=== PATIENT | female | born 1990 | race Caucasian/White ===

== ENCOUNTER 2016-09-09 12:11 | Emergency (ER) | payer MEDICAID ==
--- NOTE | ~2016-09-09 | ER ---
PATIENT'S NAME: [facility] AGE: 25 Y [address] ROOM: [place] [address] LOCATION: [facility] ADMIT DATE: 09/09/2016 ER/Outpatient Report DISCHARGE DATE: 09/09/2016 FAMILY PHYSICIAN: Tiago Pride MD ATTENDING PHYSICIAN: Roni Muñiz Admission date and time documented in the medical record. I saw the patient at 1240 hours. CHIEF COMPLAINT: Sore throat. HISTORY OF PRESENT ILLNESS: This patient is a 25-year-old female who has had a sore throat for 3 days. Difficulty swallowing. No fever. No earache. No chest pain, shortness of breath, or cough. No abdominal pain, nausea, vomiting, or diarrhea. HOME MEDICATIONS: vitamins. ALLERGIES: NONE. SOCIAL HISTORY: The patient smokes 1 cigarette a month. Nondrinker. SIGNIFICANT PAST MEDICAL HISTORY: Tobacco use, otherwise negative. OPERATIONS: Cholecystectomy. REVIEW OF SYSTEMS: All systems reviewed by me are negative with the exception of those discussed in the history of present illness. PHYSICAL EXAMINATION: VITAL SIGNS: Temperature 98.6 tympanic, pulse 82, respirations 16, blood pressure 132/84, and O2 saturation on room air is 97%. HEENT: Head: Normocephalic. Eyes, clear. Ears, clear TMs bilaterally. Nose: Clear. Throat: Clear. No exudate, no redness, no swelling. NECK: No nuchal rigidity. No thyromegaly or cervical adenopathy. No tenderness. SPINE: Negative. LUNGS: Clear. No rales, rhonchi, or wheezes. PATIENT'S NAME: [facility] AGE: 25 Y [address] ROOM: [place], [place] [address] LOCATION: ED ADMIT DATE: 09/09/2016 ER/Outpatient Report DISCHARGE DATE: 09/09/2016 FAMILY PHYSICIAN: Tiago Pride MD ATTENDING PHYSICIAN: Roni Muñiz HEART: Regular. Pulses are palpable. No chest wall or ribcage pain to palpation. ABDOMEN: Soft. Active bowel tones. EXTREMITIES: Intact. NEUROVASCULAR: Intact. SKIN: Clear. DIAGNOSTIC DATA: Rapid strep screen was negative. Monospot was negative. White count was 05581, 67 segs, 25 lymphs, 6 monos, 2 eos, 1 baso. Hemoglobin is 12.3, hematocrit 37.0, and platelet count is 334,000. IMPRESSION: Sore throat, etiology uncertain, may be a mild viral infection. No evidence of bacterial infection. PLAN: The patient dismissed home. Observation. Activity as tolerated. Good fluid intake. Warm salt water gargles. Tylenol 2 every 4 hours as needed for pain. Follow up with personal physician as needed. Discussion ensued with the patient concerning my findings and recommendations, she understands. MD COLLINS HILL/modl /[id number] d: 09/09/161957 t: 09/10/161836, OUTPATIENT REPORT
[2016-09-09 13:05] LABS: BASOPHIL # 0.1 K/uL (0.0-0.2); BASOPHIL % 0.6 %; EOSINOPHIL # 0.2 K/uL (0.0-0.5); EOSINOPHIL % 1.8 %; HEMOGLOBIN 12.3 g/dL (11.0-15.0); IMMATURE GRANULOCYTE % 0.2 %; LYMPHOCYTE # 2.5 K/uL (0.8-4.0); LYMPHOCYTE % 24.5 %; MCH 29.5 pg (27.0-34.0); MCHC 33.2 gm/dL (32.0-36.5); MCV 88.7 fl (83.0-98.0); MONOCYTE # 0.6 K/uL (0.0-1.0); MONOCYTE % 6.1 %; MPV 10.5 fl (9.4-12.4); NEUTROPHIL # (ANC) 6.8 K/uL (1.8-7.8); NEUTROPHIL % 66.8 %; NRBC % 0 /100WBC (0-0.00); PLATELET COUNT 334 K/uL (150-450); RBC 4.17 M/uL (3.50-5.00); RDW-CV 12.9 % (11.9-14.6); WBC 10.1 K/uL (4.0-11.0)
== END 2016-09-09 15:02 | disposition disaster alternative care site (69) ==
LOC: GMED 12:11
PROVIDERS: Emergency Medicine
DX: J02.9 Acute pharyngitis, unspecified (principal); F17.210 Nicotine dependence, cigarettes, uncomplicated; Z90.49 Acquired absence of other specified parts of digestive tract; Z79.82 Long term (current) use of aspirin; Z79.899 Other long term (current) drug therapy

== ENCOUNTER 2016-12-04 01:10 | Emergency (ER) | payer MEDICAID ==
--- NOTE | ~2016-12-04 | ER ---
[facility] 26 [facility] [address] ROOM: [place] [address] LOCATION: [facility] ADMIT DATE: 12/04/2016 ER/Outpatient Report DISCHARGE DATE: 12/04/2016 FAMILY PHYSICIAN: Tiago Pride MD ATTENDING PHYSICIAN: Roni Muñiz Admission date and time documented on the medical record. I saw the patient at 0125 hours. CHIEF COMPLAINT: Right upper quadrant abdominal pain and leg cramping. HISTORY OF PRESENT ILLNESS: This patient is a 26-year-old female who around 1800 hours developed some intermittent right upper quadrant pain. She has had leg cramping off and on since early this morning. Light, sharp, stabbing in nature at times. No nausea, vomiting or diarrhea. No urinary frequency, urgency, or dysuria. No fever, chills, sweats. No chest pain or shortness of breath. No suprapubic low-back pain. The patient is 23 weeks gestation with her first . She has a due date in 04/02/2017. The patient has had a cholecystectomy and tonsillectomy. She does smoke about a quarter of pack of cigarettes a day. No alcohol use. No fall or trauma. No lightheadedness, dizziness, syncope or near syncope. No headache, eyes, ears, nose, throat, neck, or spine pain. No joint or muscle swelling, redness, or pain. No skin eruptions or rash. No neuro changes, psych issues, endocrine problems. HOME MEDICATIONS: 1. Stool softeners. 2. vitamins. ALLERGIES: NONE. SOCIAL HISTORY: The patient smokes a quarter of pack of cigarettes per day and nondrinker. SIGNIFICANT PAST MEDICAL HISTORY: Negative except for tobacco abuse. OPERATIONS: Tonsillectomy, cholecystectomy. REVIEW OF SYSTEMS: All systems reviewed by me are negative with exception of those discussed in the history of present illness. PATIENT'S NAME: [facility] AGE: 26 Y [address] ROOM: [place] [address] LOCATION: [facility] ADMIT DATE: 12/04/2016 ER/Outpatient Report DISCHARGE DATE: 12/04/2016 FAMILY PHYSICIAN: Tiago Pride MD ATTENDING PHYSICIAN: Roni Muñiz PHYSICAL EXAMINATION: VITAL SIGNS: Temperature 97.3 tympanic, pulse 87, respirations 18, blood pressure 143/82, O2 saturation on room air is 96%. heart tones were 153. HEAD: Normocephalic. EYES, EARS, NOSE, AND THROAT: Clear. Mucous membranes moist. NECK: Negative. SPINE: Negative. LUNGS: Clear. HEART: Regular. ABDOMEN: Soft. No true guarding or rigidity. No rebound tenderness. No CVA tenderness. EXTREMITIES: Intact. No swelling, redness or pain to palpation of lower extremities or upper extremities. Neurovascularly intact. SKIN: Clear. LABORATORY DATA: CMS was normal. Amylase and lipase were normal. CRP was 0.6, white count 80670, 71 segs, 22 lymphs, 5 monos, 2 eos, 1 baso. Hemoglobin is 10.1 with hematocrit 29.6, and platelet count 292,000. IMPRESSION: 1. Right upper quadrant abdominal pain, etiology uncertain. 2. Intrauterine 23 weeks gestation. PLAN: The patient dismissed home. Observation. Activity as tolerated. Fluids and diet as tolerated. Continue present home medications and care. Tylenol No. 3 two orally every 4 to 6 hours needed for pain, #10. Follow up with personal physician as scheduled later this afternoon. RONI MUÑIZ MD SDS/modl /[id number] d: 12/04/16250 t: 12/04/16 0430, OUTPATIENT REPORT
[2016-12-04 01:49] LABS: BILIRUBIN URINE NEGATIVE (NEGATIVE); BLOOD URINE NEGATIVE /UL (NEGATIVE); COLOR URINE YELLOW (YELLOW); GLUCOSE URINE NEGATIVE (NEGATIVE); KETONE URINE NEGATIVE (NEGATIVE); LEUKOCYTES URINE 500 /UL (NEGATIVE); NITRITE URINE NEGATIVE (NEGATIVE); PROTEIN URINE NEGATIVE (NEGATIVE); SPEC GRAVITY URINE 1.025 (1.003-1.035); TURBIDITY URINE 3+ (CLEAR); UROBILINOGEN URINE NORMAL (NORMAL)
[2016-12-04 01:51] LABS: BASOPHIL # 0.1 K/uL (0.0-0.2); BASOPHIL % 0.5 %; EOSINOPHIL # 0.2 K/uL (0.0-0.5); EOSINOPHIL % 1.6 %; HEMATOCRIT 29.6 % (33.0-46.0); HEMOGLOBIN 10.1 g/dL (11.0-15.0); IMMATURE GRANULOCYTE % 0.3 %; LYMPHOCYTE # 2.7 K/uL (0.8-4.0); LYMPHOCYTE % 21.7 %; MCH 30.4 pg (27.0-34.0); MCHC 34.1 gm/dL (32.0-36.5); MCV 89.2 fl (83.0-98.0); MONOCYTE # 0.7 K/uL (0.0-1.0); MONOCYTE % 5.3 %; MPV 10.5 fl (9.4-12.4); NEUTROPHIL # (ANC) 8.7 K/uL (1.8-7.8); NEUTROPHIL % 70.6 %; NRBC % 0 /100WBC (0-0.00); PLATELET COUNT 292 K/uL (150-450); RBC 3.32 M/uL (3.50-5.00); RDW-CV 13.6 % (11.9-14.6); WBC 12.3 K/uL (4.0-11.0)
[2016-12-04 01:55] LABS: BACTERIA URINE MODERATE (NEGATIVE); RBC URINE NEGATIVE #/HPF (NEGATIVE)
[2016-12-04 01:56] LABS: AMORPHOUS URINE 1+ (NEGATIVE)
[2016-12-04 02:07] LABS: ALBUMIN 2.7 gm/dL (3.5-5.0); ALK PHOS 86 IU/L (33-138); ALT 33 IU/L (12-78); ANION GAP 10.7 (10.0-19.0); AST 31 IU/L (10-40); BLOOD UREA NITROGEN 6 mg/dL (6-24); CALCIUM 8.3 mg/dL (8.5-10.5); CHLORIDE 109 mMol/L (96-110); CO2 23 mMol/L (22-32); CREATININE 0.4 mg/dL (0.5-1.1); ESTIMATED GFR (MDRD EQUATION) > 60; POTASSIUM 3.7 mMol/L (3.7-5.1); SODIUM 139 mMol/L (135-145); TOTAL BILIRUBIN 0.3 mg/dL (0.0-1.5); TOTAL PROTEIN 6.5 g/dL (6.0-8.4)
== END 2016-12-04 02:35 | disposition disaster alternative care site (69) ==
LOC: GMED 01:10
PROVIDERS: Emergency Medicine
DX: O99.89 Other specified diseases and conditions complicating pregnancy, childbirth and the puerperium (principal); R10.11 Right upper quadrant pain; O99.332 Smoking (tobacco) complicating pregnancy, second trimester; F17.210 Nicotine dependence, cigarettes, uncomplicated; Z3A.23 23 weeks gestation of pregnancy; Z90.49 Acquired absence of other specified parts of digestive tract; Z90.89 Acquired absence of other organs